=== PATIENT | female | born 1980 | race Caucasian/White ===

== ENCOUNTER 2016-10-21 20:16 | Emergency (ER) | payer OTHER ==
[~2016-10-21] VITALS: Ht 165.1 cm; Wt 107.0 kg
[2016-10-21 20:25] VITALS: BP 176/85
[2016-10-21] MEDS ORDERED: HYDROcodone/APAP 5/325MG 1 TAB TABLET PO ONE (20:45)
[2016-10-21] MEDS ORDERED: AMOX500C PO (20:47)
--- NOTE | 2016-10-21 20:47 | PHYS DOC ---
Past Medical History Past Medical History: High Cholesterol Past Surgical History: No Surgical History Alcohol Use: None Drug Use: None Adult General Chief Complaint Chief Complaint: FACE PAIN [facility] HPI Patient is a 36 year old female presents to the emergency department with a history of right anterior cervical lymph node pain that radiates in the right ear and back of head. Patient states she was place of NSAID without relief. She states she normally gets an antibiotic which helps. She had seen her PCP who has requested a CT scan and has not been to get the test completed. Patient states she has had a fever up to 100. She has had these symptoms since Tuesday. Review of Systems Review of Systems Constitutional: Denies fever or chills [] Eyes: Denies change in visual acuity, redness, or eye pain [] HENT: nasal congestion denies sore throat. Lymph node swelling and right ear pain Respiratory: Denies cough or shortness of breath [] Cardiovascular: No additional information not addressed in HPI [] GI: Denies abdominal pain, nausea, vomiting, bloody stools or diarrhea [] : Denies dysuria or hematuria [] Musculoskeletal: Denies back pain or joint pain [] Integument: Denies rash or skin lesions [] Neurologic: Denies headache, focal weakness or sensory changes [] Endocrine: Denies polyuria or polydipsia [] Allergies Allergies Allergies Coded Allergies Type Severity Reaction Last Updated Verified No Known Drug Allergies 10/21/16 No Physical Exam Physical Exam Constitutional: Well developed, well nourished, no acute distress, non-toxic appearance. [] HENT: Normocephalic, atraumatic, bilateral external ears normal, oropharynx moist, no oral exudates, nose normal. Bilateral TM normal, Patient with slight swelling of the right anterior cervical lymph node. Patient with throat without erythema or redness. Eyes: PERRLA, EOMI, conjunctiva normal, no discharge. [] Neck: Normal range of motion, no tenderness, supple, no stridor. [] Cardiovascular:Heart rate regular rhythm, no murmur [] Lungs & Thorax: Bilateral breath sounds clear to auscultation [] Skin: Warm, dry, no erythema, no rash. [] Back: No tenderness Extremities: No tenderness, no cyanosis, no clubbing, ROM intact, no edema. [] Neurologic: Alert and oriented X 3, normal motor function, normal sensory function, no focal deficits noted. [] Psychologic: Affect normal, judgement normal, mood normal. [] Current Patient Data Vital Signs Vital Signs Date Time Temp Pulse Resp B/P (MAP) Pulse Ox O2 Delivery O2 Flow Rate FiO2 10/21/16 20:25 98.0 60 18 97 Room Air 98.0 EKG EKG [] Radiology/Procedures Radiology/Procedures [] Course & Med Decision Making Course & Med Decision Making Pertinent Labs and Imaging studies reviewed. (See chart for details) Patient will be discharged home with antibiotics with recommendations to continue with NSAID. Patient encouraged to drink plenty of fluids. Signs and symptoms to return to the emergency department has been provided. Patient agrees with discharge instructions, treatment regimen and followup recommendations. [] Dragon Disclaimer Dragon Disclaimer This electronic medical record was generated, in whole or in part, using a voice recognition dictation system. Departure Departure Impression: Primary Impression: Lymphadenopathy Disposition: 01 HOME, SELF-CARE Condition: STABLE Referrals: QAMAR CHUNG (PCP) Patient Instructions: Upper Respiratory Infection, Adult, [id number] Additional Instructions: Activity as tolerated Medication as prescribed Continues the pain medication you have been prescribed Followup with your primary care provider in 3-5 days Return to emergency department as needed for signs and symptoms that become worse. Scripts Amoxicillin (AMOXICILLIN) 500 Mg Capsule 1 CAP PO BID, #20 CAP Prov: ELIANE POSEY APRN 10/21/16 ELIANE POSEY APRN October 21, 2016 20:47
== END 2016-10-21 20:51 | disposition home or self-care (01) ==
LOC: ER 20:32
DX: R59.1 Generalized enlarged lymph nodes (principal); E78.00 Pure hypercholesterolemia, unspecified
CPT/HCPCS: 99283

== ENCOUNTER 2018-11-20 17:49 | Emergency (ER) | payer BC, OTHER ==
[~2018-11-20] VITALS: Ht 165.1 cm; Wt 113.4 kg
[~2018-11-20 17:49] MED LIST: AMOX500C PO
[2018-11-20 18:12] VITALS: BP 167/98
[2018-11-20] MEDS ORDERED: LIDOCAINE 1% PF 2 ML VIAL. ONE (18:53)
--- NOTE | 2018-11-20 19:06 | PHYS DOC ---
Past Medical History Past Medical History: High Cholesterol (JERMAIN RODGERS) Past Surgical History: No Surgical History (JERMAIN RODGERS) Alcohol Use: None Drug Use: None (JERMAIN RODGERS) Adult General Chief Complaint Chief Complaint: LACERATION/AVULSION HPI HPI Patient is a 38 year old F who states she tripped in her garage and fell cutting her L hand on a sharp piece of wood on the ground. She denies hitting her head, LOC or any other injury. She has a laceration of the anterior medial aspect of L hand. She reports this happened around 1730 this evening. Pt is unsure of her last tetanus shot. She is R hand dominant. (JERMAIN RODGERS) Review of Systems Review of Systems Constitutional: Denies fever or chills Respiratory: Denies cough or shortness of breath Cardiovascular: Denies chest pain. GI: Denies abdominal pain, nausea, vomiting, bloody stools or diarrhea Musculoskeletal: Denies back pain. Reports L hand pain. Integument: L hand laceration. Neurologic: Denies headache, focal weakness or sensory changes All other systems were reviewed and found to be within normal limits, except as documented in this note. (JERMAIN RODGERS) Current Medications Current Medications Current Medications Medications (Trade) Dose Ordered Sig/Tello Start Time Stop Time Status Last Admin Dose Admin Diphtheria/ Tetanus/Acell Pertussis (Boostrix) 0.5 ml ONCE ONCE 11/20/18 19:15 11/20/18 19:16 DC 11/20/18 19:17 0.5 ML Lidocaine HCl (Xylocaine-Mpf 1% 2ml Vial) 2 ml 1X ONCE 11/20/18 19:15 11/20/18 19:16 DC 11/20/18 19:16 2 ML (MARCELA YIP MD) Allergies Allergies Allergies Coded Allergies Type Severity Reaction Last Updated Verified No Known Drug Allergies 10/21/16 No (MARCELA YIP MD) Physical Exam Physical Exam Constitutional: Well developed, well nourished, no acute distress, non-toxic appearance. Neck: Normal range of motion, no tenderness, supple, no stridor. Cardiovascular:Heart rate regular rhythm, no murmur Lungs & Thorax: Bilateral breath sounds clear to auscultation Abdomen: Bowel sounds normal, soft, no tenderness, no masses, no pulsatile masses. Skin: L hand, medial aspect laceration. 5cm in length, no tendon injury noted. Pt has full ROM and sensation of L 5th finger. Back: No tenderness, no CVA tenderness. Extremities: No cyanosis, no clubbing, ROM intact, no edema. L hand pain Neurologic: Alert and oriented X 3, normal motor function, normal sensory function, no focal deficits noted. Psychologic: Affect normal, judgement normal, mood normal. (JERMAIN RODGERS) Current Patient Data Vital Signs Vital Signs Date Time Temp Pulse Resp B/P (MAP) Pulse Ox O2 Delivery O2 Flow Rate FiO2 11/20/18 18:12 98.6 102 18 167/98 (121) 97 Room Air 98.6 (MARCELA YIP MD) EKG EKG [] (JERMAIN RODGERS) Radiology/Procedures Radiology/Procedures [] (JERMAIN RODGERS) Course & Med Decision Making Course & Med Decision Making Pertinent Labs and Imaging studies reviewed. (See chart for details) Pt tolerated wound repair well. Nonstick gauze and coban applied after closure. Sutures out in 7-10 days. Tetanus was updated. (JERMAIN RODGERS) Course & Med Decision Making Staff Physician Addendum: I was working in the ER during the course of this patient's visit. I was available for consultation as needed, but I was not directly involved in the care of this patient. (MARCELA YIP MD) Dragon Disclaimer Dragon Disclaimer This electronic medical record was generated, in whole or in part, using a voice recognition dictation system. (JERMAIN RODGERS) Laceration Repair Lac Repair Indication: L hand laceration Procedure: The patient was placed in the appropriate position and 4cc's of 1% lidocaine was administered. The area was then cleansed with shur clens and betadine. The laceration was closed with 5-0 nylon, 6 sutures. The wound area was then dressed with gauze and coban. Total repaired wound length: 5 cm Other Items: 6 sutures The patient tolerated the procedure well. Complications: none (JERMAIN RODGERS) Departure Departure Impression: Primary Impression: Laceration of hand Disposition: HOME, SELF-CARE Condition: IMPROVED Referrals: QAMAR CHUNG (PCP) Patient Instructions: Laceration Care, Adult Additional Instructions: Sutures out in 7-10 days. Your tetanus was updated today. JERMAIN RODGERS Nov 20, 2018 19:05 MARCELA YIP MD Nov 21, 2018 05:00
[2018-11-20] MEDS ORDERED: LIDOCAINE 1% PF 2 ML VIAL. INJ ONE (19:15)
[2018-11-20] MEDS ORDERED: DIPHTH,PERTUSS(ACELL),TET TOX 0.5 ML DISP.SYRIN. VAX IM ONE (19:15)
== END 2018-11-20 19:19 | disposition home or self-care (01) ==
LOC: ER 17:49
DX: S61.412A Laceration without foreign body of left hand, initial encounter (principal); E78.00 Pure hypercholesterolemia, unspecified; W26.8XXA Contact with other sharp object(s), not elsewhere classified, initial encounter; Y93.89 Activity, other specified; Y92.89 Other specified places as the place of occurrence of the external cause; Y99.8 Other external cause status
CPT/HCPCS: 12002; 90471; 90715; 99283